=== PATIENT | female | born 1945 | race Caucasian/White ===

== ENCOUNTER 2016-06-30 13:48 | Emergency (ER) | payer OTHER, MEDICAID ==
--- NOTE | 2016-06-30 16:06 | UC ---
Complaint Female HPI - HPI Summary HPI Summary: R lower back pain since last night after urinary frequency (every hour) yesterday. Feels like when she was dx with pyelonephritis 30 years ago. Denies dysuria or hematuria. - History Of Current Complaint Chief Complaint: UCGU Stated Complaint: URINARY Time Seen by Provider: 06/30/16 15:19 Hx Obtained From: Patient ?: No Onset/Duration: Gradual Onset, Lasting Hours Timing: Constant Severity Initially: Mild Severity Currently: Mild Character: Not Applicable Aggravating Factor(s): Urination Associated Signs And Symptoms: Positive: Back Pain Related Hx: Similar Episode/Dx as: - pyelonephritis - Allergies/Home Medications Allergies/Adverse Reactions: Allergies Allergy/AdvReac Type Severity Reaction Status Date / Time No Known Allergies Allergy Verified 06/30/16 15:22 Home Medications: Home Medications Ascorbic Acid [C 500] 500 mg PO DAILY 06/30/16 [History Confirmed 06/30/16] Atorvastatin* [Lipitor 40 MG*] 40 mg PO QPM 06/30/16 [History Confirmed 06/30/16 ] Baclofen TAB* [Lioresal TAB*] 15 mg PO TID 06/30/16 [History Confirmed 06/30/16] Citalopram TAB* [Celexa TAB*] 20 mg PO DAILY 06/30/16 [History Confirmed ] Clopidogrel TAB* [Plavix TAB*] 75 mg PO DAILY 06/30/16 [History Confirmed ] Gabapentin CAP(*) [Neurontin 300 CAP(*)] 300 mg PO TID 06/30/16 [History Confirmed 06/30/16] Pantoprazole TAB (NF) [Protonix TAB (NF)] 06/30/16 [History] Propranolol TAB* [Inderal TAB*] 10 mg PO DAILY 06/30/16 [History Confirmed 06/30] Sennosides-Docusate Sodium [Senna-S 8.6-50 mg] 1 tab PO 06/30/16 [History] Vitamin B Complex CAP* [B Complex CAP*] 1 cap PO DAILY 06/30/16 [History Confirmed 06/30/16] traMADol TAB* [Ultram*] 50 mg PO DAILY PRN 06/30/16 [History Confirmed 06/30/16] traZODone TAB* [Desyrel TAB*] 50 mg PO BEDTIME 06/30/16 [History Confirmed 06/30] PMH/Surg Hx/FS Hx/Imm Hx Previously Healthy: No - pt is wheel-chair bound, has tremor - Surgical History Surgical History: Yes Surgery Procedure, Year, and Place: COLECTOMY, , GALL BLADDER REMOVAL. LUMPECTOMY LEFT BREAST - BENIGN. - Family History Known Family History: Positive: Hypertension - Social History Occupation: Retired Alcohol Use: None Substance Use Type: None Smoking Status (MU): Former Smoker When Did the Patient Quit Smoking/Using Tobacco: 18 YEARS AGO Review of Systems Constitutional: Negative Skin: Negative Eyes: Negative ENT: Negative Respiratory: Negative Cardiovascular: Negative Gastrointestinal: Negative Genitourinary: Frequency Motor: Negative Neurovascular: Negative Musculoskeletal: Negative Neurological: Negative Psychological: Negative All Other Systems Reviewed And Are Negative: Yes Physical Exam Triage Information Reviewed: Yes Appearance: Well-Appearing, No Pain Distress, Well-Nourished Vital Signs: Initial Vital Signs Temp 99.5 F 06/30/16 15:28 Pulse 65 06/30/16 15:28 Resp 24 06/30/16 15:28 BP 134/74 06/30/16 15:28 Pulse Ox 98 06/30/16 15:28 Vital Signs Reviewed: Yes Eye Exam: Normal Eyes: Positive: Conjunctiva Clear ENT Exam: Normal ENT: Positive: Normal ENT inspection, Hearing grossly normal, Pharynx normal, TMs normal Dental Exam: Normal Neck exam: Normal Neck: Positive: Supple, Nontender, No Lymphadenopathy Respiratory Exam: Normal Respiratory: Positive: Chest non-tender, Lungs clear, Normal breath sounds, No respiratory distress, No accessory muscle use Cardiovascular Exam: Normal Cardiovascular: Positive: RRR, No Murmur Abdomen Description: Negative: CVA Tenderness (R) - pt reports pain in R lower back with striking R flank; no actual CVA tenderness, CVA Tenderness (L) Musculoskeletal Exam: Normal Neurological Exam: Normal Psychological Exam: Normal Skin Exam: Normal Complaint Female Dx - Differential Dx/Diagnosis Provider Diagnoses: UTI Discharge - Discharge Plan Condition: Stable Disposition: HOME Prescriptions: Cephalexin CAP* [Keflex 500 CAP*] 500 mg PO TID #21 cap Patient Education Materials: Urinary Tract Infection in Women (ED) Additional Instructions: I recommend you see your primary care provider on or Friday for a recheck. Use acetaminophen and warm packs to help with the pain. If you develop fever, vomiting, or worsening pain at any time, please go to the hospital or return here for urgent follow-up.
[2016-06-30 16:23] VITALS: BP 131/72
== END 2016-06-30 16:21 | disposition home or self-care (01) ==
LOC: UCCORT 13:48
DX: N39.0 Urinary tract infection, site not specified (principal); Z90.49 Acquired absence of other specified parts of digestive tract; Z87.891 Personal history of nicotine dependence
CPT/HCPCS: 87077; 87086; 99202; G0463

== ENCOUNTER 2016-11-07 17:48 | Emergency (ER) | payer OTHER, MEDICARE ==
[2016-11-07 18:00] VITALS: BP 144/101
--- NOTE | 2016-11-07 18:05 | UC ---
Syncope/New Syncope HPI - HPI Summary HPI Summary: 71 YEAR OLD FEMALE PRESENTS WITH COMPLAINS OF SEVERE NAUSEA AND VOMITTING. - History Of Current Complaint Chief Complaint: UCGI Stated Complaint: NAUSEA,VOMITING - Allergies/Home Medications Allergies/Adverse Reactions: Allergies Allergy/AdvReac Type Severity Reaction Status Date / Time No Known Allergies Allergy Verified 11/07/16 18:00 PMH/Surg Hx/FS Hx/Imm Hx - Surgical History Surgical History: Yes Surgery Procedure, Year, and Place: COLECTOMY, , GALL BLADDER REMOVAL. LUMPECTOMY LEFT BREAST - BENIGN. - Family History Known Family History: Positive: Hypertension - Social History Alcohol Use: None Substance Use Type: None Smoking Status (MU): Former Smoker When Did the Patient Quit Smoking/Using Tobacco: 18 YEARS AGO Review of Systems Constitutional: Negative Skin: Negative Eyes: Negative ENT: Negative Respiratory: Negative Gastrointestinal: Vomiting, Nausea Genitourinary: Negative Motor: Negative Neurovascular: Negative Musculoskeletal: Myalgia Neurological: Weakness Psychological: Negative All Other Systems Reviewed And Are Negative: Yes Physical Exam Triage Information Reviewed: Yes Vital Signs: Initial Vital Signs Temp 37.6 C 11/07/16 17:55 Pulse 101 11/07/16 17:55 Resp 18 11/07/16 17:55 BP 144/101 11/07/16 17:55 Pulse Ox 96 11/07/16 17:55 Eye Exam: Normal ENT Exam: Normal Dental Exam: Normal Neck exam: Normal Neck: Positive: 1 Respiratory Exam: Normal Cardiovascular Exam: Normal Abdominal Exam: Normal Musculoskeletal Exam: Normal Neurological Exam: Normal Psychological Exam: Normal Skin Exam: Normal Syncope Course/Dx - Differential Dx/Diagnosis Provider Diagnoses: NAUSEA. VOMITTING. DIZZINESS Discharge - Discharge Plan Condition: Guarded Disposition: AGAINST MEDICAL ADVICE Patient Education Materials: Lightheadedness (ED) Referrals: Khushi Mccarthy MD [Primary Care Provider] -
== END 2016-11-07 18:05 | disposition left against medical advice (07) ==
LOC: UCCORT 17:48
DX: R11.2 Nausea with vomiting, unspecified (principal)
CPT/HCPCS: 99212; G0463